=== PATIENT | female | born 1980 | race Caucasian/White ===

== ENCOUNTER 2016-12-15 13:13 | Emergency (ER) | payer OTHER ==
[~2016-12-15] VITALS: Ht 162.6 cm; Wt 97.5 kg
[~2016-12-15 13:13] MED LIST: CLARINEX 5 MG TA5 MG PO; FLONASE120 SPRAY/ INH/SOL; IBUPROFEN400 MG PO; IMPLANON68 MG SC; LIDODERM 5% PAT1 PAT TOP; MOTRIN 400MG (400 MG PO; ONDANSETRON HYDR4 MG PO; PANTOPRAZOLE SO40 MG PO; PREDNISONE10 MG PO; PROAIR HFA0.09 MG/Ac PO; TESSALON PERLE100 MG PO; TRAMADOL HCL50 MG PO; TRAMADOL50 MG PO; ZITHROMAX Z-PA250 M1 PO; ZITHROMAX500 M1 PO
--- NOTE | 2016-12-15 13:31 | ED GI/GU/ABDOMINAL COMPLAINT ---
History of Present Illness General Chief Complaint: Female Urogenital Problems Stated Complaint: PERIOD [id number] Source: patient Exam Limitations: no limitations Vital Signs & Intake/Output Vital Signs & Intake/Output Vital Signs Date Time Temp Pulse Resp B/P Pulse O2 O2 Flow FiO2 Ox Delivery Rate 12/15 1531 97.5 85 18 109/70 98 12/15 1324 97.3 87 20 119/83 98 Room Air ED Intake and Output 12/16 0000 12/15 1200 Intake Total Output Total Balance Patient 215 lb Weight Allergies Coded Allergies: Penicillins (Intermediate, "I THINK IT WAS HIVES" 12/15/16) adhesive tape (Intermediate, "EATS AWAY AT MY SKIN" 12/15/16) aloe (Intermediate, HIVES 12/15/16) green tea (Intermediate, HIVES 12/15/16) Uncoded Allergies: "ALL PLANTS" (Intermediate, HIVES 12/15/16) Reconcile Medications Calcium Carbonate (TUMS) (Unknown Strength) TAB.CHEW (Unknown Dose) PO PRN GI (Reported) Diphenhydramine HCl (Allergy) 25 MG TABLET 1-2 TAB PO QPM ALLERGIES (Reported ) Ibuprofen 800 MG TABLET 1 TAB PO PRN PAIN (Reported) Medroxyprogesterone Acetate (Depo-Provera) 150 MG/ML SYRINGE 1 ML IM Q3M CONTROL (Reported) Triage Note: TRIAGE: PT TO ER C/C VAGINAL BLEEDING X 4 WEEKS. STATES "THE [facility] AT THE [facility] WANTED ME TO COME TO THE ER BECAUSE IT'S BEEN GOING ON THIS LONG". WAS ADVISED TO REQUEST BLOOD PANEL FOR LIVER AND ?'S AIC LEVELS R/T FAMILIAL DIABETIC HISTORY. Triage Nurses Notes Reviewed? yes ? N Is pt currently ? No Onset: Gradual Duration: week(s): (4) Timing: recent history Activities at Onset: CHANGE IN IMPLANTABLE CONTROL No Modifying Factors: none HPI: This is a 36-year-old female with history of bipolar disorder, ADHD, fiber myalgia presents to the ER with chief complaint of vaginal bleeding for the past one month. 3 months ago she was switched from implantation back to dental as the patient came to much weight. She recently moved back from [place] for her medical care. She states that she's been feeling weak. She complains of needing to wipe approximately 20 times after going to the bathroom. Denies any clots. She denies any significant abdominal pain. She did does admit to being under some stress. Past History Travel History Traveled to [place] past 21 day No Medical History Any Pertinent Medical History? 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 No Review of Systems Review of Systems Constitutional: Reports: malaise, weakness. EENTM: Reports: no symptoms. Respiratory: Denies: cough, short of breath. Cardiovascular: Denies: chest pain, palpitations. GI: Denies: abdominal pain, nausea, vomiting. Genitourinary: Reports: no symptoms. Musculoskeletal: Reports: no symptoms. Skin: Reports: no symptoms. Neurological/Psychological: Reports: no symptoms. Hematologic/Endocrine: Reports: bleeding. Denies: bruising, polyuria, polydipsia. Immunologic/Allergic: Denies: splenectomy. All Other Systems: Reviewed and Negative Physical Exam Physical Exam General Appearance: well developed/nourished, alert, awake, anxious, mild distress, obese Head: atraumatic, normal appearance Eyes: Bilateral: normal appearance, PERRL, EOMI. Ears, Nose, Throat, Mouth: hearing grossly normal Neck: normal inspection, supple, full range of motion Respiratory: normal breath sounds, chest non-tender, no respiratory distress Cardiovascular: regular rate/rhythm Peripheral Pulses: 2+ radial (R), 2+ radial (L) Gastrointestinal: normal bowel sounds, soft Back: normal inspection, normal range of motion Extremities: normal range of motion Neurologic/Psych: no motor/sensory deficits, awake, alert, oriented x 3, normal mood/affect Skin: intact, normal color, warm/dry Core Measures ACS in differential dx? No Severe Sepsis Present: No Septic Shock Present: No Progress Differential Diagnosis: FIBROIDS, DYSFUNCTIONAL UTERINE BLEEDING, ENDOMETRIOSIS, CHANGE IN MEDS, THYROID DISORDER, MALIGNANCY Plan of Care: Orders Procedure Date/time Status URINALYSIS 12/15 1435 Complete MISTAKE 12/15 1351 Active GLYCOSYLATED HGB 12/15 1351 Complete THYROID STIMULATING HORMONE 12/15 1349 Complete FREE T4 12/15 1349 Complete COMPREHENSIVE METABOLIC PANEL 12/15 1349 Complete CBC WITHOUT DIFFERENTIAL 12/15 1349 Complete Laboratory Tests 12/15/16 1436: Urine Color YEL, Urine Clarity CLEAR, Urine pH 6.0, Ur Specific [place] 1.025, Urine Protein TRACE H, Urine Ketones NEG, Urine Nitrite NEG, Urine Bilirubin NEG, Urine Urobilinogen 0.2, Ur Leukocyte Esterase NEG, Ur Microscopic SEDIMENT EXAMINED, Urine RBC 15-25 H, Ur Epithelial Cells FEW, Urine Bacteria FEW H, Urine Mucus MOD H, Urine Hemoglobin LARGE H, Urine Glucose NEG 12/15/16 1430: Hemoglobin A1c 5.3 12/15/16 143: Anion Gap 9, Estimated GFR > 60, BUN/Creatinine Ratio 15.0, Glucose 83, Calcium 9.0, Total Bilirubin 0.6, AST 17, ALT 26, Alkaline Phosphatase 80, Total Protein 6.5, Albumin 3.8, Globulin 2.7, Albumin/Globulin Ratio 1.4, TSH 1.420, Free T4 1.25, CBC w Diff NO MAN DIFF REQ, RBC 5.20, MCV 78.1 L, MCH 26.8 L, RDW 14.6 H, MPV 9.0, Gran % 64.7, Lymphocytes % 25.3, Monocytes % 7.1, Eosinophils % 2.4, Basophils % 0.5, Absolute Granulocytes 5.2, Absolute Lymphocytes 2.0, Absolute Monocytes 0.6, Absolute Eosinophils 0.2, Absolute Basophils 0, PUBS MCHC 34.3 Labs wnl, no anemia. Thyroid functions within normal limits. She will follow up with outpatient OB as she is due to have depot replaced. 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 Return as needed. Departure Forms: Customer Survey General Discharge Information
[2016-12-15] MEDS ORDERED: IBUPROFEN800 M1 PO (14:39)
[2016-12-15] MEDS ORDERED: ALLERGY25 M1 PO (14:40)
[2016-12-15] MEDS ORDERED: DEPO-PROVE150 MG/11 IM (14:40)
[2016-12-15] MEDS ORDERED: TUMS200 MG PO (14:41)
[2016-12-15 14:47] LABS: ABSOLUTE BASOPHIL COUNT 0 /CUMM (0.0-0.2); ABSOLUTE EOSINOPHIL COUNT 0.2 /CUMM (0.0-0.7); ABSOLUTE GRANULOCYTE CT 5.2 /CUMM (1.4-6.5); ABSOLUTE MONOCYTE COUNT 0.6 /CUMM (0.10-0.60); BASOPHIL % 0.5 % (0.0-2.0); EOSINOPHIL % 2.4 % (0-5); GRANULOCYTE % 64.7 % (42.2-75.2); HEMATOCRIT 40.6 % (37-47); MEAN CORPUSCULAR HGB 26.8 PG (27.0-31.0); MEAN CORPUSCULAR HGB CONC 34.3 G/DL (33.0-37.0); MEAN CORPUSCULAR VOLUME 78.1 FL (81.0-99.0); PLATELET COUNT 224 /CUMM (130-400); RBC DISTRIBUTION WIDTH 14.6 % (11.5-14.5)
[2016-12-15 15:31] VITALS: BP 109/70
== END 2016-12-15 15:38 ==
LOC: ERH 13:13
PROVIDERS: Emergency Medicine
DX: N92.0 Excessive and frequent menstruation with regular cycle (principal)
CPT/HCPCS: 81001

== ENCOUNTER 2017-01-08 19:22 | Emergency (ER) | payer OTHER ==
[~2017-01-08] VITALS: Ht 162.6 cm; Wt 102.1 kg
[~2017-01-08 19:22] MED LIST changes: +ALLERGY25 M1 PO; +DEPO-PROVE150 MG/11 IM; +IBUPROFEN800 M1 PO; +TUMS200 MG PO
--- NOTE | 2017-01-08 20:00 | ED THROAT/DENTAL COMPLAINT ---
History of Present Illness General Chief Complaint: General Adult Stated Complaint: BROKEN TOOTH Source: patient, old records Exam Limitations: no limitations Vital Signs & Intake/Output Vital Signs & Intake/Output Vital Signs Date Time Temp Pulse Resp B/P Pulse O2 O2 Flow FiO2 Ox Delivery Rate 01/08 1943 98.0 89 16 117/80 98 Room Air Allergies Coded Allergies: Penicillins (Intermediate, "I THINK IT WAS HIVES" 12/15/16) adhesive tape (Intermediate, "EATS AWAY AT MY SKIN" 12/15/16) aloe (Intermediate, HIVES 12/15/16) green tea (Intermediate, HIVES 12/15/16) Uncoded Allergies: "ALL PLANTS" (Intermediate, HIVES 12/15/16) Reconcile Medications Clindamycin HCl 300 MG CAPSULE 1 CAP PO TID dental Ibuprofen 800 MG TABLET 1 TAB PO TID PRN pain Medroxyprogesterone Acetate (Depo-Provera) 150 MG/ML SYRINGE 1 ML IM Q3M CONTROL (Reported) Triage Note: RECEIVED 36 YO FEMALE C/O RIGHT FRONT TOOTH CRACKED A FEW DAYS AGO. WAITING FOR MEDICAL CARD TO COME IN Triage Nurses Notes Reviewed? yes Onset: Gradual Duration: day(s): (2-3), constant Timing: recent history Injury Environment: home Severity: mild, moderate Severity Numbers: 5 No Modifying Factors: none Associated Symptoms: DENIES : No Patient currently breastfeeds: No HPI: 36 Year old female presents emergency room complaining of right upper dental pain for the past few days after she states she cracked her tooth. Patient states that she is waiting for her dental card to come in prior to following up with a dentist. She is at work performed on these teeth before in [place] however states a filling came out. The pain is radiating up into her cheeks. No fevers no chills no difficulty swallowing no change in voice. She has been taking ibuprofen with only mild improvement. Pain is worse with cold and chilling no other modifying factors Past History Travel History Traveled to [place] past 21 day No Medical History Any Pertinent Medical History? 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 No Review of Systems Review of Systems Constitutional: Reports: see HPI. All Other Systems: Reviewed and Negative Comments Review of systems: See HPI, All other systems negative. Constitutional, no chills no fever, no malaise HEENT: No visual changes no sore throat no congestion Cardiovascular: No chest pain , no palpitation Skin, no jaundice no rashes, no change in skin Respiratory: No dyspnea no cough no sputum GI: No nausea no vomiting, no diarrhea, Muscle skeletal: No joint pain, no back pain, no neck pain, Neurologic: No numbness no headache Psych: No stress Heme/endocrine: No bruising no bleeding Immunology: No lymphadenopathy Physical Exam Physical Exam General Appearance: well developed/nourished, no apparent distress, alert, awake Mouth/Throat: pharynx normal, dental tenderness Comments: Well-developed well-nourished patient in no apparent distress. Head/Face: Atraumatic, no maxillary/frontal sinus tenderness, no facial swelling Eyes: PERRL, EOMI, no conjunctival injection. No nystagmus Ear:External auditory canals clear Nose: atraumatic.Normal inspection Throat: Poor dentition Moist mucous membranes.Pharynx normal. No pharyngeal erythema/exudate seen. No stridor/drooling or assymetry. No swelling or edema. Neck: Supple, no lymphadenopathy, FROM Back: FROM, Nontender Cardiovascular: Regular rate and rhythms no murmurs Respiratory: No respiratory distress. Patient speaking in full complete sentences. Breath sounds clear to auscultation bilaterally: NO W/R/R Extremities: full range of motion Neuro: Alert and oriented x3 Skin: Warm & dry;No appreciable rash on exposed skin Psych: Mood affect normal, normal memory normal judgment. Core Measures ACS in differential dx? No Severe Sepsis Present: No Septic Shock Present: No Progress Differential Diagnosis: Ludwigs angina, odontogenic abscess, jones-tonsillar abscess, tooth fracture Plan of Care: I had an extensive conversation regarding need for close follow up with their primary care physician this week as well as return precautions. I answered all of their questions, they feel comfortable with the plan and follow-up care. I discussed the medications that they will receive with the patient. I gave them signs and symptoms that could indicate an adverse reaction. I have advised them to limit their activities until they can see how they respond to the medication. Departure Departure Time of Disposition: 2026 Disposition: HOME OR SELF CARE Condition: Stable Clinical Impression Primary Impression: Toothache Referrals: PATIENT HAS NO PRIMARY CARE DR (PCP/Family) Additional Instructions: Ibuprofen 800 mg every 8 hours clindamycin as directed. These prescriptions were sent to your pharmacy. follow up iwth your dentist on wednesday Departure Forms: Customer Survey General Discharge Information Prescriptions: Current Visit Scripts Clindamycin HCl 1 CAP PO TID #21 CAP Ibuprofen 1 TAB PO TID PRN pain #30 TAB
[2017-01-08] MEDS ORDERED: CLINDAMYCIN HC300 M1 PO (20:29)
[2017-01-08] MEDS ORDERED: IBUPROFEN800 M1 PO (20:29)
[2017-01-08 20:46] VITALS: BP 123/84
== END 2017-01-08 20:47 ==
LOC: ERH 19:22
DX: K08.89 Other specified disorders of teeth and supporting structures (principal)

== ENCOUNTER 2017-01-20 18:18 | Emergency (ER) | payer OTHER ==
[~2017-01-20] VITALS: Ht 162.6 cm; Wt 102.1 kg
[~2017-01-20 18:18] MED LIST changes: +CLINDAMYCIN HC300 M1 PO
[2017-01-20] MEDS ORDERED: TYLENOL WITH C1 EACH PO (20:02)
--- NOTE | 2017-01-20 20:03 | ED THROAT/DENTAL COMPLAINT ---
History of Present Illness General Chief Complaint: Sore Throat, Dental Pain Stated Complaint: MOUTH PAIN , PRESSURE IN MOUTH Source: patient Exam Limitations: poor historian (DUE TO LEARNING DISABILITY) Vital Signs & Intake/Output Vital Signs & Intake/Output Vital Signs Date Time Temp Pulse Resp B/P Pulse O2 O2 Flow FiO2 Ox Delivery Rate 01/20 1954 Room Air 01/20 1837 98.9 101 16 109/77 98 Room Air Allergies Coded Allergies: Penicillins (Intermediate, "I THINK IT WAS HIVES" 12/15/16) adhesive tape (Intermediate, "EATS AWAY AT MY SKIN" 12/15/16) aloe (Intermediate, HIVES 12/15/16) green tea (Intermediate, HIVES 12/15/16) Uncoded Allergies: "ALL PLANTS" (Intermediate, HIVES 12/15/16) Reconcile Medications Clindamycin HCl 300 MG CAPSULE 1 CAP PO TID dental Ibuprofen 800 MG TABLET 1 TAB PO TID PRN pain Medroxyprogesterone Acetate (Depo-Provera) 150 MG/ML SYRINGE 1 ML IM Q3M CONTROL (Reported) Triage Note: RECEIVED 36 YO FEMALE RETURNS AGAIN TO THE ED FOR MOUTH AND DENTAL PAIN. PT STATES SHE HAS A DENTAL APPT TOMORROW. Triage Nurses Notes Reviewed? yes : No Patient currently breastfeeds: No HPI: Patient presents for evaluation of constant moderate to severe dental pain that began about 10 days ago, gradually. Patient describes it as a throbbing pain with superimposed sharp spasms. She has been taking Orajel and an anti- inflammatory without improvement. Fortunately she has a dental appointment tomorrow. Past History Travel History Traveled to [place] past 21 day No Medical History Any Pertinent Medical History? 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 No Review of Systems Review of Systems Constitutional: Reports: no symptoms. EENTM: Reports: see HPI. Respiratory: Reports: no symptoms. Cardiovascular: Reports: no symptoms. GI: Reports: no symptoms. Genitourinary: Reports: no symptoms. Musculoskeletal: Reports: no symptoms. Skin: Reports: no symptoms. Neurological/Psychological: Reports: no symptoms. Hematologic/Endocrine: Reports: no symptoms. Immunologic/Allergic: Reports: no symptoms. All Other Systems: Reviewed and Negative Physical Exam Physical Exam Mouth/Throat: SEE BELOW Comments: Gen.: Well-nourished, well-developed, no acute respiratory distress. Head: Normocephalic, atraumatic. Eyes: Normal inspection bilaterally Ears: Normal inspection bilaterally Nose: Normal inspection Throat/mouth : Moist mucosa, diffusely poor dentition with heavily carried teeth and multiple fillings and caps. Mild gingivitis without apparent abscesses. No trismus. Neck: Supple, full range of motion, no goiter Lungs: Quiet respirations Back: Normal range of motion Extremities: Normal range of motion grossly Neurologic: Cranial nerves grossly intact, speech is clear Skin: warm and dry Psychiatric: Calm, cooperative, no apparent delusions or hallucinations Core Measures ACS in differential dx? No Severe Sepsis Present: No Septic Shock Present: No Progress Differential Diagnosis: carious tooth, odontogenic abscess, stomatitis/ gingivitis, tooth fracture Plan of Care: Anti-inflammatory, pain medication, dental follow up Departure Departure Disposition: HOME OR SELF CARE Condition: Stable Clinical Impression Primary Impression: Pain, dental Secondary Impressions: Carious teeth Referrals: FANNY GOVEA (PCP/Family) Additional Instructions: Continue the "ibuprofen like medication" as previously prescribed. Add Tylenol with Codeine if needed for pain. Follow through with your dental appointment tomorrow as scheduled. Return if any concerns or sudden worsening. Thank you for choosing the [facility] for your care. It was a pleasure to serve you today. Dorian Torres M.D. [facility] Departure Forms: Customer Survey General Discharge Information Prescriptions: Current Visit Scripts Tylenol With Codeine (Tylenol With Codeine #3 Tablet) 1-2 TAB PO Q6P PRN DENTAL PAIN #10 TAB
[2017-01-20 20:11] VITALS: BP 112/73
== END 2017-01-20 20:11 ==
LOC: ERH 18:18
DX: K08.89 Other specified disorders of teeth and supporting structures (principal); K02.9 Dental caries, unspecified